=== PATIENT | female | born 1980 | race Caucasian/White ===

== ENCOUNTER 2021-03-23 15:27 | Emergency (ER) | payer SELFPAY ==
[~2021-03-23] VITALS: Ht 162.6 cm; Wt 87.6 kg
[2021-03-23 17:07] LABS: BASO # 0.1 10^3/uL (0.0-0.2); BASO % 0.6 % (0.0-1.0); EOS # 0.2 10^3/uL (0.0-0.5); EOS % 2.4 % (0.0-3.0); HEMATOCRIT 29.1 % (36.0-47.0); HEMOGLOBIN 9.7 g/dl (12.0-15.5); LYMPH # 2.6 10^3/uL (1.5-5.0); LYMPH % 29.9 % (24.0-44.0); MEAN CORPUSCULAR HEMOGLOBIN 29.3 pg (27.0-33.0); MEAN CORPUSCULAR HGB CONC 33.3 g/dl (32.0-36.5); MEAN CORPUSCULAR VOLUME 87.9 fl (80.0-96.0); MONO # 0.5 10^3/uL (0.0-0.8); MONO % 5.6 % (2.0-8.0); NEUTROPHILS # 5.2 10^3/uL (1.5-8.5); PLATELET COUNT, AUTOMATED 292 10^3/uL (150-450); RED BLOOD COUNT 3.31 10^6/uL (4.00-5.40); WHITE BLOOD COUNT 8.6 10^3/uL (4.0-10.0)
[2021-03-23] MEDS ORDERED: NS 1,000 ML IV ONE (17:20)
[2021-03-23 17:34] LABS: BLOOD UREA NITROGEN 11 MG/DL (7-18); CALCIUM LEVEL 8.7 MG/DL (8.5-10.1); CARBON DIOXIDE LEVEL 28 MEQ/L (21-32); CHLORIDE LEVEL 106 MEQ/L (98-107); CREATININE FOR GFR 0.56 MG/DL (0.55-1.30); GLOMERULAR FILTRATION RATE > 60.0 (>60); GLUCOSE, FASTING 101 MG/DL (70-100); HCG, SERUM QUANTITATIVE 25 MIU/ML; POTASSIUM SERUM 3.7 MEQ/L (3.5-5.1); SODIUM LEVEL 140 MEQ/L (136-145)
--- NOTE | 2021-03-23 18:15 | REPVR ---
PROCEDURE INFORMATION: Exam: US First Trimester, Transabdominal Exam date and time: 03/23/2021 5:47 PM Age: 40 years old Clinical indication: Lmp or gestational age (in weeks): 13wks; Other: Vag bleeding; ; Additional info: Spontaneous TECHNIQUE: Imaging protocol: Real-time transabdominal obstetrical ultrasound of the maternal pelvis and a first trimester , less than 14 weeks 0 days, with image documentation. COMPARISON: No relevant prior studies available. FINDINGS: Gestation: See "Uterus" finding. Embryonic/ heart rate: No evidence of a pole or cardiac activity. Placenta: Unremarkable. No subchorionic bleed. Amniotic fluid: Amniotic fluid is normal for gestational age. BIOMETRY: Gestational age (AUA): Unknown MATERNAL: Uterus: Uterus measures 8 x 5 x 7.8 cm. Endometrial echo complex measures 13 mm. Findings may be consistent with retained blood products and or products of conception. Cervix: Unremarkable. Right adnexa: Unremarkable. Left adnexa: Unremarkable. Intraperitoneal space: No intraperitoneal free fluid. IMPRESSION: Endometrial echo complex measures 13 mm. Findings may be consistent with retained blood products and or products of conception post early loss. Electronically signed by: Federico Marley On 03/23/2021 18:14:58 PM
[2021-03-23 20:22] VITALS: BP 138/72
[2021-03-23] MEDS ORDERED: METH0.2T53 PO ×2 (20:30→20:54)
[2021-03-23] MEDS ORDERED: FERR325T3 PO (20:31)
[2021-03-23] MEDS ORDERED: METHYLERGONOVINE MALEATE 0.2 MG TAB PO ONE (20:55)
--- NOTE | 2021-03-23 21:09 | CR.PDOC ---
General Date of Consultation: Mar 23, 2021 Consultation REASON FOR CONSULTATION/CHIEF COMPLAINT: heavy vaginal bleeding after miscarriage HISTORY OF PRESENT ILLNESS: Aurelia is a 40yo Orthodox / presenting today for intermittent heavy vaginal bleeding after experiencing a miscarriage at home on 03/21. Her LMP was 8 Nov which would have put her at approx 13 weeks. She and her note that she had expulsion of a fetus and tissue with blood clots and heavy bleeding on 03/21. Her bleeding seemed to taper, but then increased last night such that she was passing large clots and soaking pads. She was seen in [place] yesterday where she received a dose of Rhogam and then she went back to [place] for care today and evaluation of the heavier bleeding, but the couple notes that the clinic was "too busy to see them today", so they presented here this evening. She has not yet eaten because she was not sure if she would need surgical intervention. The couple admits that they were concerned that something may have been retained or she may have an infection. Patient has not had any fevers/chills. Today her bleeding has been like a light period with no heavy bleeding since last night. She does not currently have any more cramping and at this time feels well. ALLERGIES: Please see below. HOME MEDICATIONS: Please see below. PAST MEDICAL HISTORY: Benign PAST SURGICAL HISTORY: None FAMILY HISTORY: Noncontributory SOCIAL HISTORY: Orthodox Tobacco use: none ETOH: none Illicit drug use: none REVIEW OF SYSTEMS: negative with exception of what is listed in HPI PHYSICAL EXAMINATION: VITAL SIGNS: Please see below. GENERAL APPEARANCE: well-appearing, resting comfortably on gurney, conversant and pleasant RESPIRATORY: normal respirations ABDOMEN: soft, ND, NTTP EXTREMITIES: no edema of BLE NEUROLOGICAL: A&O x3 PSYCHIATRIC: appropriate affect LABORATORY DATA: Please see below. H/H 9.7/29.1 Blood type B negative with +Anti-D ab from rhogam received yesterday Imaging: Pelvic u/s 03/23: IMPRESSION: Endometrial echo complex measures 13 mm. Findings may be consistent with retained blood products and or products of conception post early loss. ASSESSMENT: Aurelia is a 40yo Orthodox / presenting today for intermittent heavy vaginal bleeding after experiencing a miscarriage at home on 03/21. Bleeding has actually been minimal today and she has no further cramping. Exam is benign and vitals wnl. I reviewed the images of the ultrasound and discussed the results of the ultrasound and CBC with patient. She does have anemia. While the ultrasound read states the 13mm EMS MAY be consistent with retained products, I discussed with patient that it is impossible for ultrasound to diagnose this based on the thickness of the EMS. It very well may simply be simple blood clots present. The only definitive way to know is by pathology (obtained via surgery). PLAN: -Discussed results with patient and offered her medical management of 13mm EMS vs surgical (d&c). Discussed if patient is reliable to return if bleeding increases greatly (ie soaking more than 2 pads in an hour for more than 2 hours in a row), then medical management with methergine PO 0.2mg q6hr for 2d is marisol sonable. I allowed her time to discuss with the two options that we covered in depth and after time considering and discussing, patient elects for medical management. -Rx methergine series and ferrous sulfate. Encouraged patient to take ferrous sulfate with citrus for better absorption -Discussed return precautions at length -Discussed patient is welcome to follow up with me at [facility] if she would like Kayla Zambrano MD Vital Signs/I&O Vital Signs Date Time Temp Pulse Resp B/P (MAP) Pulse Ox O2 Delivery O2 Flow Rate FiO2 03/23/21 20:22 97.4 109 16 138/72 (94) 99 Room Air Laboratory Data Labs 24H Laboratory Tests 2 03/23/21 16:55: Immature Granulocyte % (Auto) 0.5, Neutrophils (%) (Auto) 61.0, Lymphocytes (%) (Auto) 29.9, Monocytes (%) (Auto) 5.6, Eosinophils (%) (Auto) 2.4, Basophils (%) (Auto) 0.6, Neutrophils # (Auto) 5.2, Lymphocytes # (Auto) 2.6, Monocytes # (Auto) 0.5, Eosinophils # (Auto) 0.2, Basophils # (Auto) 0.1, Nucleated Red Blood Cells % (auto) 0.0, Anion Gap 6L, Glomerular Filtration Rate > 60.0, Calcium Level 8.7, Human Chorionic Gonadotropin, Quant 25 CBC/BMP Laboratory Tests 03/23/21 16:55 Allergies Coded Allergies: No Known Allergies (Unverified , 03/23/21) Home Medications Scheduled Ferrous Sulfate (Ferrous Sulfate) 325 Mg Tablet.dr, 1 TAB PO BID for 30 Days, #60 Methylergonovine Maleate (Methergine) 0.2 Mg Tablet, 1 TAB PO Q6H for 2 Days, #6 Kayla Zambrano MD Mar 23, 2021 21:09
== END 2021-03-23 21:25 | disposition home or self-care (01) ==
LOC: M ED 15:27
DX: O03.4 Incomplete spontaneous abortion without complication (principal); D64.9 Anemia, unspecified; Z3A.13 13 weeks gestation of pregnancy